=== PATIENT | male | born 1960 | race Caucasian/White ===

== ENCOUNTER 2016-05-02 13:10 | Observation (INO) | payer OTHER ==
[~2016-05-02] VITALS: Ht 167.6 cm; Wt 87.6 kg
[~2016-05-02 13:10] MED LIST: Z.0.NO CURRENT MEDS
[2016-05-02 13:22] VITALS: BP 118/78; PULSE 75; RESP 16; TEMP 97.8; O2SAT 98
[2016-05-02] MEDS ORDERED: SODIUM CHLOR 0.9% 1000 ML INJ 1,000 ML IV SCH (13:42)
[2016-05-02] MEDS ORDERED: ONDANSETRON HCL 4 MG/2 ML VIAL IVP ONE (13:45)
[2016-05-02] MEDS ORDERED: MORPHINE SULFATE 4 MG/ML INJ IV ONE ×2 (13:45→18:30)
[2016-05-02] MEDS ORDERED: DIPHTH/TETANUS/ACEL PERTUSSIS (BOOSTER) 0.5 ML VIAL/PFS IM ONE (13:45)
[2016-05-02] MEDS ORDERED: ceFAZolin 2 GM PREMIX 50 ML IV ONE (13:45)
--- NOTE | 2016-05-02 13:55 | PD ---
HPI Chief Complaint: Injury Time Seen by Provider: 13:31 Travel History International Travel<30 days: No Contact w/Intl Traveler<30days: No Traveled to known affect area: No History of Present Illness HPI 55 y/o male presents with left hand injury after a grinder hardboard kicked back and hit the top of his hand approximately 30 minutes prior to arrival. He states he is right handed. He denies any other injury. He has not had a tetanus within the past 10 years. Quality pain is sharp. Severity is severe. Pain is worse with movement. He denies other modifying factors. He states he cannot move his finger up. Location is above left index finger PFS Past Medical History Cancer: No Cardiovascular Problems: No Diabetes: No Diminished Hearing: No Endocrine: No Glaucoma: No Genitourinary: No Hepatitis: No Hiatal Hernia: No Hypertension: No Immune Disorder: No Musculoskeletal: Yes (arthritis,back problems) Neurologic: No Psychiatric: No Respiratory: Yes (sinus problems) Thyroid Disease: No Tetanus Vaccination: Unknown Influenza Vaccination: No Past Surgical History Abdominal Surgery: Yes (hernia repair) Cardiac Surgery: No Ear Surgery: No Endocrine Surgery: No Eye Surgery: No Genitourinary Surgery: No Gynecologic Surgery: No Joint Replacement: No Neurologic Surgery: No Oral Surgery: Yes (sinus surgery) Pacemaker: No Thoracic Surgery: No Other Surgery: Yes Social History Alcohol Use: Yes (WINE) Tobacco Use: No Substance Use: No Allergies-Medications (Allergen,Severity, Reaction): Coded Allergies: No Known Allergies (Verified , 05/02/16) Reported Meds & Prescriptions Reported Meds & Active Scripts Active No Active Prescriptions or Reported Medications Review of Systems Except as stated in HPI: all other systems reviewed are Neg Physical Exam Narrative GENERAL: Well-nourished, well-developed patient. SKIN: Approximately 1 cm vertical laceration that shows lacerated tendon with left index finger held in flexed position and unable to extend fully HEAD: Normocephalic and atraumatic. EYES: No injection or drainage. ENT: No nasal drainage noted. NECK: Supple, trachea midline. CARDIOVASCULAR: Regular rate and rhythm RESPIRATORY: No increased effort. No accessory muscle use. GASTROINTESTINAL: Abdomen soft, non-tender, nondistended. EXTREMITIES: No edema. Pain with palpation of left hand over laceration, no pain with other joints , neurovascularly intact-sensation intact, capillary refill intact, good waveform with pulse ox, compartments soft. NEUROLOGICAL: Awake and alert. Motor and sensory grossly within normal limits. Normal speech. Data Data Last Documented VS Vital Signs Date Time Temp Pulse Resp B/P Pulse Ox O2 Delivery O2 Flow Rate FiO2 05/02/16 13:22 97.8 75 16 118/78 98 Orders Hand, Complete ([id number]) (05/02/16 ) Basic Metabolic Panel (Bmp) (05/02/16 13:42) Complete Blood Count With Diff (05/02/16 13:42) Prothrombin Time / Inr (Pt) (05/02/16 13:42) Act Partial Throm Time (Ptt) (05/02/16 13:42) Type And Screen (05/02/16 13:42) Cefazolin 2 Gm Premix (Ancef 2 Gm Premix (05/02/16 13:45) Morphine Inj (Morphine Inj) (05/02/16 13:45) Ondansetron Inj (Zofran Inj) (05/02/16 13:45) [id number] (Booster) Inj (Boostrix (05/02/16 13:45) Sodium Chlor 0.9% 1000 Ml Inj (Ns 1000 M (05/02/16 13:42) Tetanus Immune Globulin (Hypertet S/D) (05/02/16 14:15) Npo After Midnight W/ Po Meds (05/02/16 Dinner) ^ Consent (05/02/16 14:59) Admit Order (Ed Use Only) (05/02/16 15:03) Clindamycin Inj (Cleocin Inj) (05/02/16 15:15) Labs Laboratory Tests Test 05/02/16 13:50 White Blood Count 5.4 TH/MM3 Red Blood Count 5.18 MIL/MM3 Hemoglobin 16.5 GM/DL Hematocrit 48.8 % Mean Corpuscular Volume 94.2 FL Mean Corpuscular Hemoglobin 31.9 PG Mean Corpuscular Hemoglobin 33.9 % Concent Red Cell Distribution Width 13.0 % Platelet Count 189 TH/MM3 Mean Platelet Volume 8.1 FL Neutrophils (%) (Auto) 73.0 % Lymphocytes (%) (Auto) 18.0 % Monocytes (%) (Auto) 7.7 % Eosinophils (%) (Auto) 0.7 % Basophils (%) (Auto) 0.6 % Neutrophils # (Auto) 4.0 TH/MM3 Lymphocytes # (Auto) 1.0 TH/MM3 Monocytes # (Auto) 0.4 TH/MM3 Eosinophils # (Auto) 0.0 TH/MM3 Basophils # (Auto) 0.0 TH/MM3 CBC Comment DIFF FINAL Differential Comment Prothrombin Time 10.6 SEC Prothromb Time International 1.0 RATIO Ratio Activated Partial 23.8 SEC Thromboplast Time Sodium Level 143 MEQ/L Potassium Level 4.3 MEQ/L Chloride Level 107 MEQ/L Carbon Dioxide Level 27.6 MEQ/L Anion Gap 8 MEQ/L Blood Urea Nitrogen 24 MG/DL Creatinine 1.30 MG/DL Estimat Glomerular Filtration 57 ML/MIN Rate Random Glucose 154 MG/DL Calcium Level 8.7 MG/DL Blood Type B NEGATIVE Antibody Screen NEGATIVE MDM Medical Decision Making Medical Screen Exam Complete: Yes Emergency Medical Condition: Yes Medical Record Reviewed: Yes (past history confirm) Interpretation(s) CBC & BMP Diagram 05/02/16 13:50 Last 24 hours Impressions Hand X-Ray 05/02/16 0000 Signed Impressions: Service Date/Time: Monday, May 02, 2016 14:26 - CONCLUSION: No evidence of fracture. Radiopaque foreign bodies is noted. Olesya Wall MD Differential Diagnosis Tendon injury, fracture, foreign body Narrative Course Will check blood work, x-ray and dose with Ancef, tetanus, morphine, Zofran, fluids and discussed with hand surgeon patient gives permission to send pictures to hand surgeon to help facilitate his care. Patient updated and agrees to admission to the hospital for surgery tomorrow Physician Communication Physician Communication dr anderson states to admit to medicine, npo after midnight, continue ancef and add clindamycin to antibiotics, will take to OR tommorrow in [place], irrigate in er and suture skin dr hicks agrees to admit Diagnosis Primary Impression: Extensor tendon laceration of left hand with open wound Qualified Code: S66.822A - Extensor tendon laceration of left hand with open wound, initial encounter Additional Impression: LACERATION WITH FOREIGN BODY OF LEFT HAND, INITIAL ENCOUNTER Scripts No Active Prescriptions or Reported Meds Janine Pérez MD May 02, 2016 13:55 Janine Pérez MD May 02, 2016 13:55
[2016-05-02 14:01] LABS: BASOPHIL % 0.6 % (0.0-2.0); EOSINOPHIL % 0.7 % (0.0-4.0); HEMATOCRIT 48.8 % (39.0-51.0); HEMO FLAGS DIFF FINAL; MEAN CELL VOLUME 94.2 FL (80.0-100.0); MEAN CORPUSCULAR HEMOGLOBIN 31.9 PG (27.0-34.0); MEAN CORPUSCULAR HGB CONC 33.9 % (32.0-36.0); MONO % 7.7 % (0.0-8.0); PLATELET COUNT 189 TH/MM3 (150-450); RED BLOOD COUNT 5.18 MIL/MM3 (4.50-5.90); WHITE BLOOD COUNT 5.4 TH/MM3 (4.0-11.0)
[2016-05-02 14:10] LABS: POTASSIUM 4.3 MEQ/L (3.5-5.1)
[2016-05-02 14:13] LABS: BICARBONATE 27.6 MEQ/L (21.0-32.0)
[2016-05-02 14:15] LABS: APTT (PATIENT) 23.8 SEC (24.3-30.1); PROTHROMBIN TIME - PATIENT 10.6 SEC (9.8-11.6)
[2016-05-02] MEDS ORDERED: TETANUS IMMUNE GLOBULIN (HUMAN) 250 UNITS/ML SYRINGE IM ONE (14:15)
--- NOTE | 2016-05-02 14:48 | RADHPO ---
EXAM DATE/TIME: 05/02/2016 14:26 [facility] COMPARISON: No previous studies available for comparison. INDICATIONS : Laceration to left hand between 1st and 2nd matacarpal. MEDICAL HISTORY : None. SURGICAL HISTORY : None. ENCOUNTER: Initial ACUITY: 1 day PAIN SCORE: 5/10 LOCATION: Left Hand FINDINGS: 3 views of the left hand demonstrate no evidence of fracture. There is reviewed opaque debris identif ied along the palmar soft tissues at the level of the carpus and again along the dorsal aspect of the hand at the level of the MCP joints. CONCLUSION: No evidence of fracture. Radiopaque foreign bodies is noted. Olesya Wall MD on May 02, 2016 at 14:46 Board Certified Radiologist. This report was verified electronically.
[2016-05-02] MEDS ORDERED: LIDOCAINE 1%/EPINEPHrine 1:100,000 SOLN 20 ML VIAL INFIL ONE (15:15)
[2016-05-02] MEDS ORDERED: CLINDAMYCIN INJ 600 MG in SODIUM CHLORIDE 0.9% INJ 100 ML IV ONE (15:15)
[2016-05-02] MEDS ORDERED: LIDOCAINE HCL 2% 50 ML VIAL INFIL ONE (15:15)
--- NOTE | 2016-05-02 15:40 | PD ---
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 I was asked by Dr. Cavanaugh to close the wound after cleaning for surgery tomorrow with Dr. Fowler. Data Data Last Documented VS Vital Signs Date Time Temp Pulse Resp B/P Pulse Ox O2 Delivery O2 Flow Rate FiO2 05/02/16 13:22 97.8 75 16 118/78 98 Orders Hand, Complete ([id number]) (05/02/16 ) Basic Metabolic Panel (Bmp) (05/02/16 13:42) Complete Blood Count With Diff (05/02/16 13:42) Prothrombin Time / Inr (Pt) (05/02/16 13:42) Act Partial Throm Time (Ptt) (05/02/16 13:42) Type And Screen (05/02/16 13:42) Cefazolin 2 Gm Premix (Ancef 2 Gm Premix (05/02/16 13:45) Morphine Inj (Morphine Inj) (05/02/16 13:45) Ondansetron Inj (Zofran Inj) (05/02/16 13:45) [id number]-Bvxtvv (Booster) Inj (Boostrix (05/02/16 13:45) Sodium Chlor 0.9% 1000 Ml Inj (Ns 1000 M (05/02/16 13:42) Tetanus Immune Globulin (Hypertet S/D) (05/02/16 14:15) Npo After Midnight W/ Po Meds (05/02/16 Dinner) ^ Consent (05/02/16 14:59) Admit Order (Ed Use Only) (05/02/16 15:03) Clindamycin Inj (Cleocin Inj) (05/02/16 15:15) Labs Laboratory Tests Test 05/02/16 13:50 White Blood Count 5.4 TH/MM3 Red Blood Count 5.18 MIL/MM3 Hemoglobin 16.5 GM/DL Hematocrit 48.8 % Mean Corpuscular Volume 94.2 FL Mean Corpuscular Hemoglobin 31.9 PG Mean Corpuscular Hemoglobin 33.9 % Concent Red Cell Distribution Width 13.0 % Platelet Count 189 TH/MM3 Mean Platelet Volume 8.1 FL Neutrophils (%) (Auto) 73.0 % Lymphocytes (%) (Auto) 18.0 % Monocytes (%) (Auto) 7.7 % Eosinophils (%) (Auto) 0.7 % Basophils (%) (Auto) 0.6 % Neutrophils # (Auto) 4.0 TH/MM3 Lymphocytes # (Auto) 1.0 TH/MM3 Monocytes # (Auto) 0.4 TH/MM3 Eosinophils # (Auto) 0.0 TH/MM3 Basophils # (Auto) 0.0 TH/MM3 CBC Comment DIFF FINAL Differential Comment Prothrombin Time 10.6 SEC Prothromb Time International 1.0 RATIO Ratio Activated Partial 23.8 SEC Thromboplast Time Sodium Level 143 MEQ/L Potassium Level 4.3 MEQ/L Chloride Level 107 MEQ/L Carbon Dioxide Level 27.6 MEQ/L Anion Gap 8 MEQ/L Blood Urea Nitrogen 24 MG/DL Creatinine 1.30 MG/DL Estimat Glomerular Filtration 57 ML/MIN Rate Random Glucose 154 MG/DL Calcium Level 8.7 MG/DL Blood Type B NEGATIVE Antibody Screen NEGATIVE MDM Medical Record Reviewed: Yes Supervised Visit with ADRIANA: Yes Differential Diagnosis Laceration. Tendon laceration. Need for suturing Narrative Course Laceration is closed after extensive cleaning with saline and Betadine. See procedure note. Procedures Procedure Narrative LACERATION LOCATION: Left dorsal hand at the base of the second finger LENGTH: 4 cm NUMBER OF STITCHES/PEPITO: 4 interrupted vertical mattress, 4 simple interrupted REPAIR: The area of the laceration was prepped with Betadine and sterilely draped. The laceration was infiltrated with 4 mL 1% lidocaine with epi. The wound was copiously irrigated and explored with evidence of small amount of foreign body, obvious extensor tendon injury but no neurovascular injury. The wound was closed using 4-0 Prolene. This was a single layer repair. A sterile dressing was applied. The patient was advised to keep the dressing clean and dry. Patient tolerated the procedure well. Diagnosis Primary Impression: Extensor tendon laceration of left hand with open wound Qualified Code: S66.822A - Extensor tendon laceration of left hand with open wound, initial encounter Additional Impression: LACERATION WITH FOREIGN BODY OF LEFT HAND, INITIAL ENCOUNTER Scripts No Active Prescriptions or Reported Meds Condition: Stable Nhna Cardenas May 02, 2016 15:40
[2016-05-02 16:10] VITALS: BP 124/80
--- NOTE | 2016-05-02 18:51 | HHI.HP ---
HPI Service [facility] Hospitalists Primary Care Physician Chandan Marcum MD Admission Diagnosis complex left hand laceration with tendon injury Chief Complaint: grind injury left hand laceration with tendon injury Travel History International Travel<30 Days: No Contact w/Intl Traveler <30 Da: No Traveled to Known Affected Are: No History of Present Illness 55 y/o male presents with left hand injury after a external grinder tender kicked back and hit the top of his hand approximately 30 minutes prior to arrival. He states he is right handed. He denies any other injury. He has not had a tetanus within the past 10 years. Quality pain is sharp. Severity is severe. Pain is worse with movement. He denies other modifying factors. He states he cannot move his finger up. Location is above left index finger Orthopedics will take patient to or will continue ancef 1gm q 8h and use pain med npo aftermidnight Review of Systems Other hand pain Past Family Social History Past Medical History none Past Surgical History hernia, Reported Medications none Allergies: Coded Allergies: No Known Allergies (Verified , 05/02/16) Social History occ wine NS Physical Exam Vital Signs Vital Signs Date Time Temp Pulse Resp B/P Pulse Ox O2 Delivery O2 Flow Rate FiO2 05/02/16 16:10 68 18 124/80 99 05/02/16 13:22 97.8 75 16 118/78 98 Physical Exam GENERAL: This is a well-nourished, well-developed patient, in no apparent distress. SKIN: No rashes, ecchymoses or lesions. Cool and dry. HEAD: Atraumatic. Normocephalic. No temporal or scalp tenderness. EYES: Pupils equal round and reactive. Extraocular motions intact. No scleral icterus. No injection or drainage. ENT: Nose without bleeding, purulent drainage or septal hematoma. Throat without erythema, tonsillar hypertrophy or exudate. Uvula midline. Airway patent. NECK: Trachea midline. No JVD or lymphadenopathy. Supple, nontender, no meningeal signs. CARDIOVASCULAR: Regular rate and rhythm without murmurs, gallops, or rubs. RESPIRATORY: Clear to auscultation. Breath sounds equal bilaterally. No wheezes , rales, or rhonchi. GASTROINTESTINAL: Abdomen soft, non-tender, nondistended. No hepato-splenomegaly , or palpable masses. No guarding. MUSCULOSKELETAL: rt hand bandage with pain on movement NEUROLOGICAL: Awake and alert. Cranial nerves II through XII intact. Motor and sensory grossly within normal limits. Five out of 5 muscle strength in all muscle groups. Normal speech. Laboratory Laboratory Tests Test 05/02/16 13:50 White Blood Count 5.4 Red Blood Count 5.18 Hemoglobin 16.5 Hematocrit 48.8 Mean Corpuscular Volume 94.2 Mean Corpuscular Hemoglobin 31.9 Mean Corpuscular Hemoglobin 33.9 Concent Red Cell Distribution Width 13.0 Platelet Count 189 Mean Platelet Volume 8.1 Neutrophils (%) (Auto) 73.0 Lymphocytes (%) (Auto) 18.0 Monocytes (%) (Auto) 7.7 Eosinophils (%) (Auto) 0.7 Basophils (%) (Auto) 0.6 Neutrophils # (Auto) 4.0 Lymphocytes # (Auto) 1.0 Monocytes # (Auto) 0.4 Eosinophils # (Auto) 0.0 Basophils # (Auto) 0.0 CBC Comment DIFF FINAL Differential Comment Prothrombin Time 10.6 Prothromb Time International 1.0 Ratio Activated Partial 23.8 Thromboplast Time Sodium Level 143 Potassium Level 4.3 Chloride Level 107 Carbon Dioxide Level 27.6 Anion Gap 8 Blood Urea Nitrogen 24 Creatinine 1.30 Estimat Glomerular Filtration 57 Rate Random Glucose 154 Calcium Level 8.7 Blood Type B NEGATIVE Antibody Screen NEGATIVE Result Diagram: 05/02/16 1350 05/02/16 1350 Imaging Last 24 hours Impressions Hand X-Ray 05/02/16 0000 Signed Impressions: Service Date/Time: Monday, May 02, 2016 14:26 - CONCLUSION: No evidence of fracture. Radiopaque foreign bodies is noted. Olesya Wall MD Course in er given clindamycin and ancef Assessment and Plan Problem List: (1) Extensor tendon laceration of left hand with open wound Status: Acute Plan: plan as per hand surgery continue ancef hydromorph for pain Assessment and Plan plan as per ortho Code Status full Discussed Condition With patient Problem Qualifiers (1) Extensor tendon laceration of left hand with open wound: Qualified Code: S66.822A - Extensor tendon laceration of left hand with open wound, initial encounter Chandan Marcum MD May 02, 2016 18:51
[2016-05-02] MEDS ORDERED: TEMAZEPAM 15 MG CAP PO PRN (19:00)
[2016-05-02] MEDS ORDERED: NALOXONE HCL 0.4 MG/ML AMP IV PRN (19:00)
[2016-05-02] MEDS: HYDROmorphone HCL PF 1 MG/ML VIAL IV PRN ×2 (19:43→23:28)
[2016-05-02 20:00] VITALS: BP 121/91; PULSE 68; RESP 18; TEMP 98.3; O2SAT 96
[2016-05-02] MEDS: SODIUM CHLORIDE 0.9% FLUSH 10 ML FLUSH IV FLUSH SCH (21:00)
[2016-05-02] MEDS: SODIUM CHLORIDE 0.9% FLUSH 10 ML FLUSH IV FLUSH PRN (23:28)
[2016-05-03] VITALS: BP 129/97; PULSE 67; RESP 18; TEMP 98.1; O2SAT 95
[2016-05-03] MEDS: SODIUM CHLORIDE 0.9% FLUSH 10 ML FLUSH IV FLUSH PRN ×2 (04:17→05:17)
[2016-05-03] MEDS: HYDROmorphone HCL PF 1 MG/ML VIAL IV PRN ×4 (04:17→17:00)
[2016-05-03 08:00] VITALS: BP 107/78; PULSE 63; RESP 16; TEMP 97.5; O2SAT 98
[2016-05-03] MEDS: SODIUM CHLORIDE 0.9% FLUSH 10 ML FLUSH IV FLUSH SCH (09:00)
--- NOTE | 2016-05-03 09:58 | HHI.PR ---
Subjective Remarks Patient admitted for tendon repair rt hand for surgery today probable discharge after procedure. Objective Vitals GENERAL: SKIN: Warm and dry. HEAD: Atraumatic. Normocephalic. EYES: Pupils equal and round. No scleral icterus. No injection or drainage. ENT: No nasal bleeding or discharge. Mucous membranes pink and moist. NECK: Trachea midline. No JVD. CARDIOVASCULAR: Regular rate and rhythm. RESPIRATORY: No accessory muscle use. Clear to auscultation. Breath sounds equal bilaterally. GASTROINTESTINAL: Abdomen soft, non-tender, nondistended. Hepatic and splenic margins not palpable. MUSCULOSKELETAL: Extremities without clubbing, cyanosis, or edema. No obvious deformities. rt hand with bandage soft cast pre surgery NEUROLOGICAL: Awake and alert. No obvious cranial nerve deficits. Motor grossly within normal limits. Five out of 5 muscle strength in the arms and legs. Normal speech. PSYCHIATRIC: Appropriate mood and affect; insight and judgment normal. Vital Signs Date Time Temp Pulse Resp B/P Pulse Ox O2 Delivery O2 Flow Rate FiO2 05/03/16 08:00 97.5 63 16 107/78 98 05/03/16 00:00 98.1 67 18 129/97 95 05/02/16 20:00 98.3 68 18 121/91 96 05/02/16 16:10 68 18 124/80 99 05/02/16 13:22 97.8 75 16 118/78 98 05/02/16 05/02/16 05/03/16 15:00 23:00 07:00 Intake Total 1050 ml 490 ml 625 ml Balance 1050 ml 490 ml 625 ml Intake Oral 240 ml 480 ml IV Total 1050 ml 250 ml 145 ml # Voids 2 5 # Bowel Movements 0 0 Result Diagram: 05/02/16 1350 05/02/16 1350 Imaging Last 24 hours Impressions Hand X-Ray 05/02/16 0000 Signed Impressions: Service Date/Time: Monday, May 02, 2016 14:26 - CONCLUSION: No evidence of fracture. Radiopaque foreign bodies is noted. Olesya Wall MD A/P Problem List: (1) Extensor tendon laceration of left hand with open wound Status: Acute Plan: plan as per hand surgery continue ancef hydromorph for pain Problem Qualifiers (1) Extensor tendon laceration of left hand with open wound: Qualified Code: S66.822A - Extensor tendon laceration of left hand with open wound, initial encounter Chandan Marcum MD May 03, 2016 09:58
[2016-05-03] MEDS ORDERED: PROPOFOL 200 MG/20 ML AMP IV ONE (11:38)
[2016-05-03 12:00] VITALS: BP 115/82; PULSE 72; RESP 16; TEMP 97.6; O2SAT 96
--- NOTE | 2016-05-03 12:23 | MB ---
cc: DONNA RODRIGUEZ M.D. DATE OF CONSULTATION 05/03/2016 REQUESTING PHYSICIAN The patient is being seen at the request of Dr. Janine Pérez. HISTORY OF PRESENT ILLNESS The patient is a 55-year-old male who was working on a steel table with a platen grinder. He was trying to take it apart. It kicked back and hit the top of his hand causing a laceration. The patient came to the emergency room where it was noted that he had inability to extend his left index finger. Consultation is requested regarding evaluation and treatment of the left index finger. PAST MEDICAL HISTORY/REVIEW OF SYSTEMS The review of systems is negative in detail except as related to the above for 10 systems. SURGICAL HISTORY 1. Hip replacement. 2. Hernia repair. PAST MEDICAL HISTORY Hyperlipidemia. MEDICATIONS He takes no medications. He denies high blood pressure or heart disease. ALLERGIES He has no known food or drug allergies. SOCIAL HISTORY The patient does not smoke. PHYSICAL EXAMINATION GENERAL: The patient is lying comfortably in bed. VITAL SIGNS: His temperature is 97.5, pulse is 63, respirations 16, blood pressure is 107/78. His pulse oximetry is 98 on room air. HEENT: His extraocular muscles are intact. His pupils are equal, round and reactive to light. His mouth is clear. NECK: His neck is supple without masses. LUNGS: Clear. HEART: Regular rate and rhythm. EXTREMITIES: Examination of his left hand reveals a sutured laceration which is approximate 4 cm long and is longitudinal. It is between the index and the middle rays dorsally on the left hand. The tendon and picture is noted to be lacerated. He is unable to extend the index finger. REVIEW OF THE X-RAYS There is no evidence of injury to the bone but there is some contamination prior to the closure from yesterday. LABORATORY DATA His H&H is 16.5/48.8. His BUN is 24. Estimated GFR is 57. His random glucose yesterday afternoon was 154. IMPRESSION The patient has had a laceration to his left hand. PLAN The patient will be taken to the operating room for exploration of the wound and repair of the extensor tendons and any other structures that were injured. The patient understands and accepts the risks and complications of the surgery as well as the need for continuous splinting for the next four weeks. MD LOIS Davenport/MORAIMA /11:53 AM /12:17 PM
[2016-05-03] MEDS ORDERED: LACTATED RINGER'S 1000 ML INJ 1,000 ML ONE (12:42)
[2016-05-03] MEDS ORDERED: BUPIVACAINE HCL PF 0.5% 30 ML VIAL ONE (13:17)
[2016-05-03] MEDS ORDERED: MIDAZOLAM HCL 2 MG/2 ML VIAL ONE (13:56)
[2016-05-03] MEDS ORDERED: FAMOTIDINE 20 MG/2 ML VIAL ONE (13:56)
[2016-05-03] MEDS: BUPIVACAINE HCL PF 0.5% 30 ML VIAL ONE ×2 (14:31→14:56)
[2016-05-03] MEDS ORDERED: POVIDONE IODINE 10% OINT 1 PACKET TOP ONE (15:25)
[2016-05-03 15:48] VITALS: PULSE 91
[2016-05-03] MEDS ORDERED: DEXT 5%-NACL 0.45% 1000 ML INJ 1,000 ML IV SCH (15:53)
[2016-05-03] MEDS ORDERED: IBUP800T23 PO (15:58)
[2016-05-03] MEDS ORDERED: NORC5TAB PO (15:58)
[2016-05-03] MEDS ORDERED: BACT800T5 PO (15:58)
[2016-05-03] MEDS ORDERED: SODIUM CHLORIDE 0.9% FLUSH 5 ML FLUSH IVF PRN (16:00)
--- NOTE | 2016-05-03 16:00 | HHI.PR ---
Immediate Post Op Note Procedure Date: May 03, 2016 Pre Op Diagnosis: (1) Extensor tendon laceration of left hand with open wound Post Op Diagnosis: (1) Extensor tendon laceration of left hand with open wound Surgeon: Eden Fowler Timber Robber(s): none Procedure: Excisional debridement of left hand wound. Repair extensor tendons x 2. Complex repair of wound of left hand, 4.5cm Anesthesia: General Drains: None Tourniquet time (min at mmHg) 54 minutes at 220 mm Hg Patient to: PACU Patient Condition: Good Date/Time of Procedure: SEE SURGICAL CARE RECORD Eden Fowler MD May 03, 2016 15:59
[2016-05-03 16:30] VITALS: BP 135/86; PULSE 86; RESP 14; TEMP 98.5; O2SAT 98
--- NOTE | 2016-05-03 16:35 | HHI.DS ---
Discharge Summary Admission Date May 02, 2016 at 15:05 Admitting Diagnosis complex left hand laceration with tendon injury (1) Extensor tendon laceration of left hand with open wound Diagnosis: [facility] Procedures repair left hand tendon Brief History 55 y/o male presents with left hand injury after a tool grinder operator surface kicked back and hit the top of his hand approximately 30 minutes prior to arrival. He states he is right handed. He denies any other injury. He has not had a tetanus within the past 10 years. Quality pain is sharp. Severity is severe. Pain is worse with movement. He denies other modifying factors. He states he cannot move his finger up. Location is above left index finger Orthopedics will take patient to or will continue ancef 1gm q 8h and use pain med npo aftermidnight CBC/BMP: 05/02/16 1350 05/02/16 1350 Significant Findings Laboratory Tests Test 05/02/16 13:50 Neutrophils (%) (Auto) 73.0 % (16.0-70.0) Activated Partial 23.8 SEC Thromboplast Time (24.3-30.1) Blood Urea Nitrogen 24 MG/DL (7-18) Estimat Glomerular Filtration 57 ML/MIN (>89) Rate Random Glucose 154 MG/DL (74-106) Hospital Course patient went to OR and ortho repaired tendon without complications Pt Condition on Discharge: Good Discharge Disposition: Discharge Home Discharge Instructions DIET: Follow Instructions for: As Tolerated, No Restrictions Activities you can perform: Regular-No Restrictions Other Activity Instructions: hand activity as per ortho New Medications: Hydrocodone-Acetaminophen (Gideon) 5-325 mg Tab 1-2 TAB PO Q6H PRN PAIN #40 Ref 0 TAB Ibuprofen (Ibuprofen) 800 Mg Tab 800 MG PO Q8H PRN Pain/Inflammation #60 Ref 0 TAB Sulfamethoxazole-Trimethoprim (Bactrim DS) 800-160 Mg Tab 1 TAB PO BID Infection #14 Ref 0 TAB Chandan Marcum MD May 03, 2016 16:35
[2016-05-03] MEDS ORDERED: SODIUM CHLORIDE 0.9% FLUSH 5 ML FLUSH IVF SCH (21:00)
--- NOTE | 2016-05-04 22:06 | EKG ---
Date Performed: 05/03/2016 Time Performed: 05:50:42 PTAGE: 55 years EKG: Sinus rhythm Since previous tracing, no significant change noted Normal ECG PREVIOUS TRACING : 06/30/2012 11.25 DOCTOR: Nicole Norris Interpretating Date/Time 05/04/2016 22:04:57
--- NOTE | 2016-05-05 12:21 | MP ---
cc: DONNA RODRIGUEZ M.D. DATE OF SURGERY 05/03/2016 PREOPERATIVE DIAGNOSIS Open contaminated wound of left hand with tendon injury. POSTOPERATIVE DIAGNOSIS Open contaminated wound of left hand with tendon injury. PROCEDURE 1. Excisional debridement open wound of left hand. 2. Repair of extensor indicis proprius of the left hand. 3. Repair of extensor digitorum communis to the index finger of the left hand. 4. Complex repair of 4.5 cm laceration of left hand. ANESTHESIA General SURGEON Dr. Rodriguez INDICATIONS This is a 55-year-old male with grinder dresser injury to the left hand. FINDINGS There is a significant amount of grinder dresser dust in the hand with small fragments present. At the completion of the procedure, fragments have been removed and the two tendons were repaired. TOURNIQUET TIME 54 minutes PROCEDURE The patient was seen preoperatively where the site and side were identified and marked. The patient was then taken to the operating room, placed in a supine position. His identity was checked against the arm band and the consent form site and side confirmed, time-out called prior to beginning the procedure. The left upper extremity was prepped with Hibiclens and draped in the usual sterile fashion. The sutures which had been placed were removed. The wound was opened and copiously irrigated with saline and manual debridement of many foreign fragments was undertaken. Once it was cleansed, the wound was debrided sharply by excising the edges of the wound along the entire periphery. At this point, the tendon ends were identified. The proximal ends were debrided and 3-0 Ethibond suture material was placed in there in a modified Michael stitch. This was both proximal ends, the same thing with the distal ends. They was then identified to the indicis proprius and the extensor communis and the two ends were tied together. Once this was completed, the wound itself was closed with an interrupted running 5-0 nylon suture. Bupivacaine 0.5% plain was injected into all operated areas just prior to closure. Once the wound was closed, the tourniquet was released after 54 minutes of tourniquet time. Pressure was applied. After several minutes, there was no evidence of any oozing. A dressing was applied using povidone-iodine ointment, Adaptic, Telfa, 4x4s, hand wrap and a palmar splint to keep the wrist and fingers in extension. The patient was then taken from the operating room to the recovery room in satisfactory condition having tolerated the procedure well. Postoperative instructions include keeping the arm elevated, keeping the area clean and dry and returning in several days for follow up. Patient is given prescriptions for Bactrim DS, as well as [place] and Ibuprofen. MD LOIS Davenport/JONATHON /4:03 PM /12:12 PM
== END 2016-05-03 17:28 | disposition home or self-care (01) ==
LOC: PHED 13:10 → PHEDA 15:05 → PH3B 16:13
PROVIDERS: ADMIT Internal Medicine; ATTEND Internal Medicine
DX: S66.321A Laceration of extensor muscle, fascia and tendon of left index finger at wrist and hand level, initial encounter (principal); E78.5 Hyperlipidemia, unspecified; Z96.649 Presence of unspecified artificial hip joint; Z23 Encounter for immunization; W31.89XA Contact with other specified machinery, initial encounter
CPT/HCPCS: 01810; 12002; 26410; 73130; 80048; 82948; 85025; 85610; 85730; 86850; 86900; 86901; 90471; 93005; 96365; 96375; 99284; G0378; J0690; J1170; J1670; J2250; J2270; J2405; J3010; J7030; J7120

== ENCOUNTER 2016-05-17 18:51 | Observation (INO) | payer OTHER ==
[~2016-05-17] VITALS: Ht 180.3 cm; Wt 85.3 kg
[2016-05-17 19:30] VITALS: BP 140/80; PULSE 88; RESP 16; TEMP 98.5; O2SAT 98
[2016-05-17 20:30] VITALS: BP 137/75; PULSE 82; RESP 18; O2SAT 99
--- NOTE | 2016-05-17 20:47 | PD ---
HPI Chief Complaint: Edema Time Seen by Provider: 20:21 Travel History International Travel<30 days: No Contact w/Intl Traveler<30days: No Traveled to known affect area: No History of Present Illness HPI The patient is a 55 year old male who presents to the [facility] emergency department with a history of right arm swelling along the forearm and wrist that began 4 days ago and has gradually been getting worse with time. He reports that there is an aching pain associated with this. The patient reports that he was recently admitted to the hospital related to an injury to the left hand that required surgical repair of the tendon. The patient reports that he had 2 IVs in the right upper extremity during his admission. He reports that he recently completed antibiotics postop. He reports that he followed up with his primary care physician, Dr. Marcum in the office this week and an ultrasound was ordered for today of the right upper extremity. He was called by the office stating that he needed to go to the emergency department as there was a blood clot in the right upper extremity. On review of systems, the patient denies any recent fevers, cough, congestion, neck pain, chest pain, shortness of breath, abdominal pain, vomiting, diarrhea, urinary symptoms, or neurologic symptoms. [facility] Past Medical History Narrative Medical The patient's past medical history is significant for a left hand laceration and tendon injury status post surgical repair in April 2016, chronic sinusitis, arthritis, intermittent back pain. Cancer: No Cardiovascular Problems: No Diabetes: No Diminished Hearing: No Endocrine: No Glaucoma: No Genitourinary: No Hepatitis: No Hiatal Hernia: No Hypertension: No Immune Disorder: No Musculoskeletal: Yes (arthritis,back problems) Neurologic: No Psychiatric: No Respiratory: Yes (sinus problems) Thyroid Disease: No Past Surgical History Narrative Surgical The patient's past surgical history is significant for hernia repair, left hand laceration and tendon repair, sinus surgery. Abdominal Surgery: Yes (hernia repair) Cardiac Surgery: No Ear Surgery: No Endocrine Surgery: No Eye Surgery: No Genitourinary Surgery: No Gynecologic Surgery: No Joint Replacement: No Neurologic Surgery: No Oral Surgery: Yes (sinus surgery) Pacemaker: No Thoracic Surgery: No Other Surgery: Yes Social History Alcohol Use: Yes (WINE) Tobacco Use: No Substance Use: Yes Allergies-Medications (Allergen,Severity, Reaction): Coded Allergies: No Known Allergies (Verified , 05/13/16) Reported Meds & Prescriptions Reported Meds & Active Scripts Active Review of Systems Except as stated in HPI: all other systems reviewed are Neg General / Constitutional: No: Fever Eyes: No: Visual changes HENT: No: Headaches Cardiovascular: No: Chest Pain or Discomfort Respiratory: No: Shortness of Breath Gastrointestinal: No: Abdominal Pain Genitourinary: No: Dysuria Musculoskeletal: Positive: Myalgias, Edema, Pain Skin: No Rash Neurologic: No: Weakness Psychiatric: No: Depression Endocrine: No: Polydipsia Hematologic/Lymphatic: No: Easy Bruising Physical Exam Narrative General: The patient is a well-developed well-nourished male in no acute distress. Head and Neck exam: Head is normocephalic atraumatic. Eyes: EOMI, pupils are equal round and reactive to light. Nose: Midline septum with pink mucous membranes Mouth: Dentition unremarkable. Moist mucus membranes. Posterior oropharynx is not erythematous. No tonsillar hypertrophy. Uvula midline. Airway patent. Neck: No palpable lymphadenopathy. No nuchal rigidity. No thyromegaly. Cardiovascular: Regular rate and rhythm without murmurs, gallops, or rubs. Lungs: Clear to auscultation bilaterally. No wheezes, rhonchi, or rales. Abdomen: Soft, without tenderness to palpation in all 4 quadrants of the abdomen. No guarding, rebound, or rigidity. Normal bowel sounds are audible. No tenderness on palpation of McBurney's point. Extremities: No clubbing or cyanosis. The patient has on the left upper extremity a splint in place. The patient's fingers are pink. The patient on examination of the right upper extremity has swelling to the medial aspect of the antecubital fossa down through the forearm to the wrist. The patient has less than 3 second capillary refill. The patient has intact sensation over all fingertips. There is no rash associated with this. There is no increased warmth. There is no pointing or crepitus. 2+ pulses in all 4 extremities. Back: No spinous process tenderness to palpation. No costovertebral angle tenderness to palpation. Neurologic Exam: Grossly nonfocal. Skin Exam: No rash noted. Intact skin that is warm and dry. Data Data Last Documented VS Vital Signs Date Time Temp Pulse Resp B/P Pulse Ox O2 Delivery O2 Flow Rate FiO2 4/10/17 20:30 18 99 Room Air 05/17/16 20:30 81 05/17/16 20:30 137/75 05/17/16 19:30 98.5 Orders Electrocardiogram (05/17/16 20:22) Complete Blood Count With Diff (05/17/16 20:22) Comprehensive Metabolic Panel (05/17/16 20:22) B-Type Natriuretic Peptide (05/17/16 20:22) Prothrombin Time / Inr (Pt) (05/17/16:22) Act Partial Throm Time (Ptt) (05/17/16:22) Magnesium (Mg) (05/17/16:) Iv Access Insert/Monitor (05/17/16) Ecg Monitoring (05/17/16) Oximetry (05/17/16) Admit To Inpatient (05/17/16 ) Code Status (05/17/16 21:00) Vital Signs (Adult) Q4H (05/17/16 21:00) Activity Oob With Assistance (05/17/16 21:00) Diet Regular Basic (05/18/16 Breakfast) Sodium Chloride 0.9% Flush (Ns Flush) (05/17/16 21:00) Sodium Chloride 0.9% Flush (Ns Flush) (05/17/16 21:00) Acetaminophen (Tylenol) (05/17/16 21:00) Ondansetron Inj (Zofran Inj) (05/17/16 21:00) Magnesium Hydroxide Liq (Milk Of Magnesi (05/17/16 21:00) Temazepam (Restoril) (05/17/16 21:00) Basic Metabolic Panel (Bmp) (05/18/16 06:00) Complete Blood Count With Diff (05/18/16 06:00) Chest, Single Ap (05/17/16 21:00) Naloxone Inj (Narcan Inj) (05/17/16 21:00) Inpatient Certification (05/17/16 ) Heparin Inj (Heparin Inj) (05/17/16 21:15) Heparin Inj (Heparin Inj) (05/18/16 03:15) Heparin Inj (Heparin Inj) (05/18/16 03:15) Heparin-D5w Inj (Heparin-D5w Inj) (05/17/16 21:15) Act Partial Throm Time (Ptt) (05/18/16 04:03) Us Arm Venous Doppler (05/17/16 ) Invasive Rad Dept Consult (05/17/16 ) Acetamin-Hydrocod 325-5 Mg ([place] 5-325 (05/17/16 21:15) Hydromorphone Pf Inj (Dilaudid Pf Inj) (05/17/16 21:15) Admit Order (Ed Use Only) (05/17/16 21:17) Labs Laboratory Tests Test 05/17/16 20:50 White Blood Count 7.7 TH/MM3 Red Blood Count 5.21 MIL/MM3 Hemoglobin 17.3 GM/DL Hematocrit 49.1 % Mean Corpuscular Volume 94.3 FL Mean Corpuscular Hemoglobin 33.2 PG Mean Corpuscular Hemoglobin 35.2 % Concent Red Cell Distribution Width 14.1 % Platelet Count 197 TH/MM3 Mean Platelet Volume 8.3 FL Neutrophils (%) (Auto) 68.4 % Lymphocytes (%) (Auto) 21.1 % Monocytes (%) (Auto) 8.4 % Eosinophils (%) (Auto) 1.1 % Basophils (%) (Auto) 1.0 % Neutrophils # (Auto) 5.2 TH/MM3 Lymphocytes # (Auto) 1.6 TH/MM3 Monocytes # (Auto) 0.6 TH/MM3 Eosinophils # (Auto) 0.1 TH/MM3 Basophils # (Auto) 0.1 TH/MM3 CBC Comment DIFF FINAL Differential Comment Prothrombin Time 10.5 SEC Prothromb Time International 1.0 RATIO Ratio Activated Partial 26.0 SEC Thromboplast Time Sodium Level 139 MEQ/L Potassium Level 4.2 MEQ/L Chloride Level 106 MEQ/L Carbon Dioxide Level 25.5 MEQ/L Anion Gap 8 MEQ/L Blood Urea Nitrogen 29 MG/DL Creatinine 1.30 MG/DL Estimat Glomerular Filtration 57 ML/MIN Rate Random Glucose 119 MG/DL Calcium Level 8.9 MG/DL Magnesium Level 2.1 MG/DL Total Bilirubin 0.5 MG/DL Aspartate Amino Transf 23 U/L (AST/SGOT) Alanine Aminotransferase 34 U/L (ALT/SGPT) Alkaline Phosphatase 124 U/L B-Type Natriuretic Peptide 51 PG/ML Total Protein 7.0 GM/DL Albumin 3.7 GM/DL MDM Medical Decision Making Medical Screen Exam Complete: Yes Emergency Medical Condition: Yes Medical Record Reviewed: Yes Interpretation(s) Last Impressions Chest X-Ray 05/17/16 2100 Signed Impressions: Service Date/Time: Tuesday, May 17, 2016 21:01 - CONCLUSION: No acute disease. Parrish Tong MD FACR Upper Extremity Ultrasound 05/17/16 0000 Signed Impressions: Service Date/Time: Tuesday, May 17, 2016 21:28 - CONCLUSION: Deep venous thrombosis as described above. Parrish Tong MD FACR Differential Diagnosis Right upper extremity DVT, versus superficial thrombophlebitis, versus cellulitis Narrative Course During the course of the patients emergency department visit, the patients history, examination, and differential diagnosis were reviewed with the patient. The patient had IV access obtained and blood work sent for analysis. The patient was placed on a ekg monitor with oximetry and blood pressure monitoring. An EKG was done on arrival. The patient's EKG shows a sinus rhythm , heart rate of 87, no acute ST segment elevation or depression. The patients laboratory studies were reviewed and remarkable for a white count of 7.7, hemoglobin 17.3, platelets 197 with 8.4 monocytes. CMP is remarkable for V1 and 29, glucose 119, alkaline phosphatase 124, BNP is 51, PT/PTT within normal limits. The patient had a chest x-ray done that showed no acute abnormality. [facility]. I spoke to Dr. Childers. He did discuss the patient's case with the primary care physician. The plan to consult interventional radiology for consideration of thrombolysis. The patient will be placed on heparin in the meantime. The patients results were discussed with the patient, including the plan of care. I explained that further testing and/ or monitoring is indicated based on the patients history, examination, and/ or laboratory findings. Therefore, I recommended admission for additional evaluation. The patient expressed understanding and was agreeable with this plan. The patient was admitted to the hospital in stable condition and sent to a [facility]. Physician Communication Physician Communication A call was placed out to the patient's primary care physician, the covering physician is Dr. Childers. He reported that he will discuss this further with the patient's primary care physician and call me back. Diagnosis Primary Impression: Deep venous thrombosis of right upper extremity Qualified Code: I82.621 - Acute deep vein thrombosis (DVT) of brachial vein of right upper extremity Admitting Information Admitting Physician Requests: Admit Scripts Rivaroxaban (Xarelto)15 Mg Tab15 Mg PO Q12HR #42 TAB Ref 0 Prov:Santa Copeland 05/18/16 Jazmine Bailey MD May 17, 2016 20:47
[2016-05-17 20:58] LABS: AUTOMATED NEUTROPHIL # 5.2 TH/MM3 (1.8-7.7); BASOPHIL # 0.1 TH/MM3 (0-0.2); EOSINOPHIL # 0.1 TH/MM3 (0-0.4); EOSINOPHIL % 1.1 % (0.0-4.0); HEMATOCRIT 49.1 % (39.0-51.0); HEMO FLAGS DIFF FINAL; LYMPH % 21.1 % (9.0-44.0); LYMPHOCYTE # 1.6 TH/MM3 (1.0-4.8); MEAN CELL VOLUME 94.3 FL (80.0-100.0); MEAN CORPUSCULAR HEMOGLOBIN 33.2 PG (27.0-34.0); MEAN CORPUSCULAR HGB CONC 35.2 % (32.0-36.0); MONO % 8.4 % (0.0-8.0); NEUT % 68.4 % (16.0-70.0); PLATELET COUNT 197 TH/MM3 (150-450); RED BLOOD COUNT 5.21 MIL/MM3 (4.50-5.90); RED CELL DISTRIBUTION WIDTH 14.1 % (11.6-17.2); WHITE BLOOD COUNT 7.7 TH/MM3 (4.0-11.0)
[2016-05-17] MEDS ORDERED: ONDANSETRON HCL 4 MG/2 ML VIAL IVP PRN (21:00)
[2016-05-17] MEDS ORDERED: NALOXONE HCL 0.4 MG/ML AMP IV PRN (21:00)
[2016-05-17] MEDS ORDERED: SODIUM CHLORIDE 0.9% FLUSH 10 ML FLUSH IV FLUSH PRN (21:00)
[2016-05-17] MEDS: SODIUM CHLORIDE 0.9% FLUSH 10 ML FLUSH IV FLUSH SCH (21:00)
[2016-05-17] MEDS ORDERED: TEMAZEPAM 15 MG CAP PO PRN (21:00)
[2016-05-17] MEDS ORDERED: ACETAMINOPHEN 325 MG TAB PO PRN (21:00)
[2016-05-17] MEDS ORDERED: MAGNESIUM HYDROXIDE SUSP 30 ML CUP PO PRN (21:00)
[2016-05-17 21:09] LABS: PROTHROMBIN TIME - PATIENT 10.5 SEC (9.8-11.6)
[2016-05-17] MEDS ORDERED: HEPARIN-D5W INJ 250 ML IV SCH (21:15)
[2016-05-17] MEDS ORDERED: ACETAMINOPHEN/HYDROcodone 325 MG/5 MG TAB PO PRN (21:15)
[2016-05-17] MEDS ORDERED: HEPARIN SODIUM - IV 10,000 UNITS/10 ML VIAL IV ONE (21:15)
--- NOTE | 2016-05-17 21:24 | RADRPT ---
EXAM DATE/TIME: 05/17/2016 21:01 [facility] COMPARISON: No previous studies available for comparison. INDICATIONS : Cough. MEDICAL HISTORY : None. SURGICAL HISTORY : None. ENCOUNTER: Initial ACUITY: 2 days PAIN SCORE: 0/10 LOCATION: Bilateral chest FINDINGS: A single view of the chest demonstrates the lungs to be symmetrically aerated without evidence of mas s, infiltrate or effusion. The cardiomediastinal contours are unremarkable. Osseous structures are intact. CONCLUSION: No acute disease. Parrish Tong MD FACR on May 17, 2016 at 21:22 Board Certified Radiologist. This report was verified electronically.
[2016-05-17 21:30] LABS: ALKALINE PHOSPHATASE 124 U/L (45-117); ALT (GPT) 34 U/L (12-78); ANION GAP 8 MEQ/L (5-15); AST (GOT) 23 U/L (15-37); BICARBONATE 25.5 MEQ/L (21.0-32.0); BLOOD UREA NITROGEN 29 MG/DL (7-18); CHLORIDE 106 MEQ/L (98-107); GLOMERULAR FILTRATION RATE 57 ML/MIN (>89); MAGNESIUM 2.1 MG/DL (1.5-2.5); POTASSIUM 4.2 MEQ/L (3.5-5.1); SODIUM (NA) 139 MEQ/L (136-145); TOTAL BILIRUBIN ADULT 0.5 MG/DL (0.2-1.0)
[2016-05-17] MEDS: HYDROmorphone HCL PF 1 MG/ML VIAL IV PUSH PRN (22:21)
--- NOTE | 2016-05-17 22:49 | RADRPT ---
EXAM DATE/TIME: 05/17/2016 21:28 [facility] COMPARISON: No previous studies available for comparison. INDICATIONS : Right arm pain and swelling. MEDICAL HISTORY : Arthritis. Hyperlipidemia. SURGICAL HISTORY : Oral surgery. Right hip replacement. Hernia repair. ENCOUNTER: Initial ACUITY: 2 weeks PAIN SCORE: 6/10 LOCATION: Right arm. FINDINGS: There is thrombus beginning in the mid forearm extending into the brachial vein terminating in mid fo rearm. CONCLUSION: Deep venous thrombosis as described above. Parrish Tong MD FACR on May 17, 2016 at 22:47 Board Certified Radiologist. This report was verified electronically.
[2016-05-17 23:00] VITALS: BP 134/77; PULSE 79; RESP 18; O2SAT 98
[2016-05-18 00:48] VITALS: BP 137/92; PULSE 86; RESP 16; TEMP 97.4; O2SAT 97
[2016-05-18] MEDS ORDERED: HEPARIN SODIUM - IV 10,000 UNITS/10 ML VIAL IV PRN ×2 (03:15)
[2016-05-18] MEDS: HYDROmorphone HCL PF 1 MG/ML VIAL IV PUSH PRN ×2 (04:33→11:10)
[2016-05-18 05:21] VITALS: BP 135/90; PULSE 69; RESP 18; TEMP 97.8; O2SAT 97
[2016-05-18 05:41] LABS: AUTOMATED NEUTROPHIL # 3.6 TH/MM3 (1.8-7.7); BASOPHIL % 0.4 % (0.0-2.0); EOSINOPHIL # 0.1 TH/MM3 (0-0.4); EOSINOPHIL % 2.2 % (0.0-4.0); HEMATOCRIT 45.9 % (39.0-51.0); HEMO FLAGS DIFF FINAL; LYMPH % 27.5 % (9.0-44.0); LYMPHOCYTE # 1.6 TH/MM3 (1.0-4.8); MEAN CELL VOLUME 94.4 FL (80.0-100.0); MEAN CORPUSCULAR HEMOGLOBIN 32.8 PG (27.0-34.0); MEAN CORPUSCULAR HGB CONC 34.8 % (32.0-36.0); MONO % 8.8 % (0.0-8.0); NEUT % 61.1 % (16.0-70.0); PLATELET COUNT 173 TH/MM3 (150-450); RED BLOOD COUNT 4.86 MIL/MM3 (4.50-5.90); RED CELL DISTRIBUTION WIDTH 13.9 % (11.6-17.2); WHITE BLOOD COUNT 5.9 TH/MM3 (4.0-11.0)
[2016-05-18 06:09] LABS: BICARBONATE 24.1 MEQ/L (21.0-32.0); POTASSIUM 3.8 MEQ/L (3.5-5.1)
[2016-05-18 06:10] LABS: APTT (PATIENT) 121.6 SEC (24.3-30.1)
[2016-05-18 08:00] VITALS: BP 126/95; PULSE 70; RESP 20; TEMP 96.4; O2SAT 100
[2016-05-18 08:29] LABS: APTT (PATIENT) 42.6 SEC (24.3-30.1)
[2016-05-18] MEDS: SODIUM CHLORIDE 0.9% FLUSH 10 ML FLUSH IV FLUSH SCH (11:09)
--- NOTE | 2016-05-18 11:41 | EKG ---
Date Performed: 05/17/2016 Time Performed: 20:36:38 PTAGE: 55 years EKG: Sinus rhythm NORMAL ECG PREVIOUS TRACING : 05/03/2016 05.50 DOCTOR: Oswald Gaspar Interpretating Date/Time 05/18/2016 11:37:28
--- NOTE | 2016-05-18 12:04 | HHI.HP ---
HPI Service [facility] Hospitalists Primary Care Physician Chandan Marcum MD Admission Diagnosis right upper extremity DVT Chief Complaint: RUE swelling and pain Travel History International Travel<30 Days: No Contact w/Intl Traveler <30 Da: No Traveled to Known Affected Are: No History of Present Illness Mr. Xiao is a 55 y/o male with chronic sinusitis and osteoarthritis who recently was admitted to [facility] after a left hand injury after a tool and cutter grinder kicked back and hit the top of his hand. Pt underwent left hand wound excisional debridement, EIP and EDC tendon repair, and complex repair of 4.5 cm laceration on 05/03/[address] Fowler. Pt presented back to the ED at [facility] on 05/17/16 with complaints of right arm swelling along the forearm and wrist that began 4 days prior and has gradually been getting worse with time. He reports that there is an aching pain associated with this. The patient reports that during his recent hospitalization he had 2 IVs in the right upper extremity. He reports that he recently completed his post-op antibiotics, Bactrim. He followed up with his PCP, Dr. Marcum, in the office this week yesterday for the swelling of the right upper extremity. He was sent for an US of the RUE which revealed an occlusive extensive thrombus involving the right cubital, basilic and cephalic veins. He was called by the office stating that he needed to go to the ED for further treatment and evaluation as it was felt that the patient may need TPA. Pt had a repeat US in the ED which noted the thrombus beginning in the mid forearm extending into the brachial vein terminating in the mid forearm. Radiology reviewed the images today with Dr. Childers and did not feel that the pt would require TPA. 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 HEENT: Atraumatic. Normocephalic. No temporal or scalp tenderness. No scleral icterus. Airway patent. NECK: Trachea midline, supple, nontender. CARDIO: Regular. RESP: CTA bilaterally. No wheezes, rales, or rhonchi. ABD: +BS, soft, non-tender, nondistended. EXT: Left upper extremity with a splint in place. RUE swelling to the medial aspect of the antecubital fossa down through the forearm to the wrist. 3 second capillary refill. The patient has intact sensation over all fingertips. T NEURO: Awake and alert. Motor and sensory grossly within normal limits. Normal speech. Laboratory Laboratory Tests Test 05/17/16 05/18/16 05/18/16 20:50 04:30 08:06 White Blood Count 7.7 5.9 Red Blood Count 5.21 4.86 Hemoglobin 17.3 16.0 Hematocrit 49.1 45.9 Mean Corpuscular Volume 94.3 94.4 Mean Corpuscular Hemoglobin 33.2 32.8 Mean Corpuscular Hemoglobin 35.2 34.8 Concent Red Cell Distribution Width 14.1 13.9 Platelet Count 197 173 Mean Platelet Volume 8.3 8.6 Neutrophils (%) (Auto) 68.4 61.1 Lymphocytes (%) (Auto) 21.1 27.5 Monocytes (%) (Auto) 8.4 8.8 Eosinophils (%) (Auto) 1.1 2.2 Basophils (%) (Auto) 1.0 0.4 Neutrophils # (Auto) 5.2 3.6 Lymphocytes # (Auto) 1.6 1.6 Monocytes # (Auto) 0.6 0.5 Eosinophils # (Auto) 0.1 0.1 Basophils # (Auto) 0.1 0.0 CBC Comment DIFF FINAL DIFF FINAL Differential Comment Prothrombin Time 10.5 Prothromb Time International 1.0 Ratio Activated Partial 26.0 121.6 42.6 Thromboplast Time Sodium Level 139 138 Potassium Level 4.2 3.8 Chloride Level 106 103 Carbon Dioxide Level 25.5 24.1 Anion Gap 8 11 Blood Urea Nitrogen 29 29 Creatinine 1.30 1.18 Estimat Glomerular Filtration 57 64 Rate Random Glucose 119 155 Calcium Level 8.9 8.5 Magnesium Level 2.1 Total Bilirubin 0.5 Aspartate Amino Transf 23 (AST/SGOT) Alanine Aminotransferase 34 (ALT/SGPT) Alkaline Phosphatase 124 B-Type Natriuretic Peptide 51 Total Protein 7.0 Albumin 3.7 Result Diagram: 05/18/16 0430 05/18/16 0430 Imaging Last Impressions Chest X-Ray 05/17/16 2100 Signed Impressions: Service Date/Time: Tuesday, May 17, 2016 21:01 - CONCLUSION: No acute disease. Parrish Tong MD FACR Upper Extremity Ultrasound 05/17/16 0000 Signed Impressions: Service Date/Time: Tuesday, May 17, 2016 21:28 - CONCLUSION: Deep venous thrombosis as described above. Parrish Tong MD FACR Septic Shock Reassessment Heart: Regular rate and rhythm Lungs: Clear Skin: Warm Assessment and Plan Problem List: (1) DVT (deep venous thrombosis) Status: Acute Plan: - Pt recently sustained an injury to the left hand and underwent left hand wound excisional debridement, EIP and EDC tendon repair, and complex repair of 4.5 cm laceration on 05/03/[address] Fowler. - Pt presented back to the ED at [facility] on 05/17/16 with complaints of right arm swelling along the forearm and wrist that began 4 days prior and has gradually been getting worse. - The patient reports that during his recent hospitalization he had 2 IVs in the right upper extremity. - Pt had an outpt US of the RUE which revealed an occlusive extensive thrombus involving the right cubital, basilic and cephalic veins. He was called by the office stating that he needed to go to the ED for further treatment and evaluation as it was felt that the patient may need TPA. - Pt was started on Heparin - Pt had a repeat US in the ED which noted the thrombus beginning in the mid forearm extending into the brachial vein terminating in the mid forearm. Radiology reviewed the images today with Dr. Childers and did not feel that the pt would require TPA. - The heparin will be stopped and the pt will be started on Xarelto 15mg po BID and will need to followup with his PCP. - Pt will be discharged home today. Physician Certification 2 Midnight Certification Type: Admission for Inpatient Services Order for Inpatient Services The services are ordered in accordance with Medicare regulations or non- Medicare payer requirements, as applicable. In the case of services not specified as inpatient-only, they are appropriately provided as inpatient services in accordance with the 2-midnight benchmark. Estimated LOS (days): 2 2 days is the estimated time the patient will need to remain in the hospital, assuming treatment plan goals are met and no additional complications. Post-Hospital Plan: Home Problem Qualifiers (1) DVT (deep venous thrombosis): Qualified Code: I82.621 - Acute deep vein thrombosis (DVT) of brachial vein of right upper extremity Santa Copeland May 18, 2016 12:04 Haroon Childers DO May 30, 2016 10:28
[2016-05-18] MEDS ORDERED: XARE15TA PO (12:15)
[2016-05-18] MEDS ORDERED: RIVAROXABAN 15 MG TAB PO SCH (12:15)
--- NOTE | 2016-05-18 12:16 | HHI.DCPOC ---
Discharge Care Plan Diagnosis: (1) DVT (deep venous thrombosis) Goals to Promote Your Health * To prevent worsening of your condition and complications * To maintain your health at the optimal level Directions to Meet Your Goals Take your medications as prescribed Follow your dietary instruction Follow activity as directed Keep your appointments as scheduled Take your immunizations and boosters as scheduled If your symptoms worsen call your PCP, if no PCP go to Urgent Care Center or Emergency Room Smoking is Dangerous to Your Health. Avoid second hand smoke Call the 24-hour hour crisis hotline for domestic abuse at [place] Copeland May 18, 2016 12:16 Haroon Childers DO May 30, 2016 10:29
== END 2016-05-18 15:45 | disposition home or self-care (01) ==
LOC: NEPC 18:51 → INTOOBSV 21:18 → NEDA 21:18 → N05A 05-18 00:18 → UNDODISIN 05-18 15:45
PROVIDERS: ADMIT Hospitalist; ATTEND Hospitalist
DX: I82.621 Acute embolism and thrombosis of deep veins of right upper extremity (principal); M79.631 Pain in right forearm; E78.5 Hyperlipidemia, unspecified
CPT/HCPCS: 71010; 80048; 80053; 83735; 83880; 85025; 85610; 85730; 93005; 93971; 99284; G0378; J1170; J1644; J2405

== ENCOUNTER 2016-06-17 18:40 | Emergency (ER) | payer OTHER ==
[~2016-06-17] VITALS: Ht 167.6 cm; Wt 84.7 kg
[~2016-06-17 18:40] MED LIST changes: +XARE15TA PO; -Z.0.NO CURRENT MEDS
[2016-06-17 18:44] VITALS: BP 116/82; PULSE 98; RESP 15; TEMP 98.3; O2SAT 97
--- NOTE | 2016-06-17 19:09 | PD ---
HPI . Swelling, left hand and forearm Chief Complaint: Edema Time Seen by Provider: 18:50 Travel History International Travel<30 days: No Contact w/Intl Traveler<30days: No Traveled to known affect area: No History of Present Illness HPI Patient presents complaining with pain and swelling in the left hand and forearm. Onset today. Pain is mild. No exacerbating or relieving factor. Pertinent history is that he had a DVT in his right upper extremity in May following surgery on his left hand for extensor tendon repair. He is still on Xarelto for that. [facility] Past Medical History Asthma: No Heart Rhythm Problems: No Cancer: No Cardiovascular Problems: Yes High Cholesterol: No Chest Pain: No Congestive Heart Failure: No COPD: No Diabetes: No Diminished Hearing: No Endocrine: No Glaucoma: No Genitourinary: No Hepatitis: No Hiatal Hernia: No Hypertension: No Immune Disorder: No Musculoskeletal: No Neurologic: No Psychiatric: No Reproductive: No Respiratory: Yes (sinus problems) Sleep Apnea: No Thyroid Disease: No ?: Not Past Surgical History Abdominal Surgery: Yes (hernia repair) Arteriovenous Shunt: No Cardiac Surgery: No Ear Surgery: No Endocrine Surgery: No Eye Surgery: No Genitourinary Surgery: No Gynecologic Surgery: No Insulin Pump: No Joint Replacement: Yes (right hip) Neurologic Surgery: No Oral Surgery: Yes (sinus surgery) Pacemaker: No Thoracic Surgery: No Other Surgery: Yes Social History Alcohol Use: Yes (WINE) Tobacco Use: No Substance Use: No Allergies-Medications (Allergen,Severity, Reaction): Coded Allergies: No Known Allergies (Verified , 06/17/16) Reported Meds & Prescriptions Reported Meds & Active Scripts Active Reported Xarelto (Rivaroxaban) 20 Mg Tab 20 Mg PO DAILY Review of Systems Except as stated in HPI: all other systems reviewed are Neg General / Constitutional: No: Fever Musculoskeletal: Positive: Edema Skin: Positive Change in Pigmentation Physical Exam Narrative GENERAL: Awake and alert and in no acute distress. SKIN: Warm and dry. He does have some redness and warmth on the dorsal aspect of her left hand at the second MCP joint. HEAD: Atraumatic. Normocephalic. EYES: Pupils equal and round. NECK: Trachea midline. CARDIOVASCULAR: Regular rate and rhythm. RESPIRATORY: No accessory muscle use. MUSCULOSKELETAL: No obvious deformities. He does have visible venous engorgement of the left arm and hand. NEUROLOGICAL: Awake and alert. No obvious cranial nerve deficits. Motor grossly within normal limits. Normal speech. PSYCHIATRIC: Appropriate mood and affect; insight and judgment normal. Data Data Last Documented VS Vital Signs Date Time Temp Pulse Resp B/P Pulse Ox O2 Delivery O2 Flow Rate FiO2 06/17/16 19:38 20 99 06/17/16 18:44 98.3 98 116/82 Orders Us Arm Venous Doppler (06/17/16 19:00) MDM Medical Decision Making Medical Screen Exam Complete: Yes Emergency Medical Condition: Yes Medical Record Reviewed: Yes (patient suffered an extensor tendon laceration on 05/02. This was repaired on 05/05. He was diagnosed with a DVT in his right upper extremity on 05/17. TPA was considered. Interventional radiology did not feel that this would be beneficial to the patient. He was subsequently treated with Xarelto.) Differential Diagnosis My differential diagnosis of a swollen extremity includes but is not limited to superficial phlebitis, DVT, cellulitis Narrative Course Patient presents for the evaluation of left upper extremity swelling. He has visible engorgement of the veins of the left upper extremity. He is currently on Xarelto for previous DVT in his right upper extremity. Last Impressions Upper Extremity Ultrasound 06/17/16 1900 Signed Impressions: Service Date/Time: Saturday, June 18, 2016 00:24 - CONCLUSION: Normal examination. Owen Steward MD I will treat the patient for cellulitis. Diagnosis Primary Impression: Left upper extremity swelling Additional Impression: Cellulitis Qualified Code: L03.114 - Cellulitis of left upper extremity Patient Instructions: Cellulitis (DC), General Instructions Med/Other Pt SpecificInfo: Prescription(s) given Scripts Cephalexin (Keflex)500 Mg Bdf160 Mg PO Q8H #30 CAP Ref 0 Prov:Cee Mcbride MD 06/17/16 Disposition: 01 DISCHARGE HOME Condition: Stable Cee Mcbride MD June 17, 2016 19:09
[2016-06-17] MEDS ORDERED: XARE20TA PO (19:34)
--- NOTE | 2016-06-17 19:53 | RADHPO ---
EXAM DATE/TIME: 06/18/2016 00:24 [facility] COMPARISON: No previous studies available for comparison. INDICATIONS : Left arm swelling. MEDICAL HISTORY : DVT right arm. SURGICAL HISTORY : Right hip replacement. Hand surgery two months ago. ENCOUNTER: Initial ACUITY: 1 day PAIN SCORE: 3/10 LOCATION: Left arm. FINDINGS: There is spontaneous flow documented in the brachial, basilic, cephalic, axillary, and subclavian vei ns. The vessels are compressible and augmentation response is documented. No filling defects are se en. The flow is phasic with respiration. Direction of flow in the jugular vein is caudal. CONCLUSION: Normal examination. Owen Steward MD on June 17, 2016 at 19:51 Board Certified Radiologist. This report was verified electronically.
[2016-06-17] MEDS ORDERED: CEPH-460 PO (20:13)
[2016-06-17 20:33] VITALS: BP 116/65
== END 2016-06-17 20:35 | disposition home or self-care (01) ==
LOC: PHED 18:40
DX: L03.114 Cellulitis of left upper limb (principal); M79.89 Other specified soft tissue disorders
CPT/HCPCS: 93971